=== PATIENT | female | born 1955 | race Caucasian/White ===

== ENCOUNTER → 2016-09-14 | Outpatient (CLI) | payer OTHER ==
[~2016-09-14] MED LIST: ASPIR 8181 M1 PO; ATENOLOL100 MG PO; CENTRUM SILVER1 EAC3 PO; Caltrate 600/200 PO; Dyazide, Maxzide 37. PO; Ecotrin PO; FLOVENT 22120 INHALA IH; Feosol PO; Flovent 220 mcg IH; GABAPENTIN300 MG PO; METFORMIN HCL850 MG PO; METFORMIN PO; MOBIC7.5 MG PO; NORCO 5/3251 TABLET PO; Neurontin PO; PRILOSEC40 MG PO; Proventil,Ventolin H IH; RHINOCORT AQUA8.6 G1 NS; SIMVASTATIN10 MG PO; SINGULAIR10 MG PO; Senokot S,Pericolace PO; TIZANIDINE HCL4 MG PO; TRIAMTERENE-HC1 EACH PO; TYLENOL ARTHRI650 MG PO; Tenormin PO; VENTOLIN HFA18 GM IH; Vicodin,Lortab 5/500 PO; ZYRTEC10 M3 PO; ZyrTEC PO
== END | disposition home or self-care (01) ==
LOC: RES 09:41
DX: N20.9 Urinary calculus, unspecified (principal)
CPT/HCPCS: 94060; 94726; 94729